=== PATIENT | male | born 1990 | race Caucasian/White ===

== ENCOUNTER 2021-07-28 06:47 | Day surgery (SDC) | payer BC ==
[~2021-07-28] VITALS: Ht 182.9 cm; Wt 212.3 kg
[2021-07-28] MEDS ORDERED: PRINIVIL10 MG PO (07:11)
[2021-07-28] MEDS ORDERED: JANUVIA 100MG100 MG PO (07:11)
[2021-07-28] MEDS ORDERED: ZOCOR 40MG40 MG PO (07:11)
[2021-07-28] MEDS ORDERED: VITAMIN D 50,1.25 MG PO (07:12)
[2021-07-28 07:34] VITALS: BP 136/77; PULSE 93; TEMP 97.5
[2021-07-28 08:20] VITALS: BP 128/81; PULSE 91; TEMP 98.9
[2021-07-28 08:30] VITALS: BP 126/76; PULSE 88
[2021-07-28 08:45] VITALS: BP 119/66; PULSE 86
[2021-07-28 08:49] VITALS: BP 136/75; PULSE 89; TEMP 97
--- NOTE | 2021-07-28 08:59 | NUR ---
0820 Pt returns from endo procedure via cart and RN assist to [facility]. Pt ambulates from cart to recliner with RN assist. Monitors on and alarms set. Call light within reach. Report received from [place] [place]. Pt alert and oriented. Pt requests muffin and juice. Pt denies any pain or nausea. Family present in pt's room. 0840 Pt taking food and drink well. No complications noted. 0855 Discharge instructions given to pt and family. All questions answered to their satisfaction. Handed to pt are a thank you card and discharge information. 0859 Pt transferred out of the hospital via wheelchair and [place] [place] assist, to private vehicle driven by family.
== END 2021-07-28 08:59 | disposition home or self-care (01) ==
LOC: SDCO 06:47
DX: K21.00 Gastro-esophageal reflux disease with esophagitis, without bleeding (principal); K29.30 Chronic superficial gastritis without bleeding; I10 Essential (primary) hypertension; G47.33 Obstructive sleep apnea (adult) (pediatric); E78.5 Hyperlipidemia, unspecified; E11.9 Type 2 diabetes mellitus without complications; Z79.899 Other long term (current) drug therapy; Z79.84 Long term (current) use of oral hypoglycemic drugs
CPT/HCPCS: J2704